=== PATIENT | male | born 1950 | race Caucasian/White ===

== ENCOUNTER → 2018-02-18 | Outpatient (CLI) | payer MEDICARE, BC ==
--- NOTE | 2018-02-18 12:10 | KCIC ---
Examination: MRI of the right shoulder without contrast HISTORY: History of right shoulder pain COMPARISON: None available TECHNIQUE: Multiplanar, multisequence MR imaging of the right shoulder were performed without contrast. FINDINGS: The long head of the biceps tendon is within the bicipital groove. The attachment of the long head of the biceps tendon to the superior labral anchor grossly appears intact. The attachment of the subscapularis tendon appears intact. Surgical changes of prior rotator cuff surgery identified. The visualized supraspinatus, infraspinatus tendon appear intact. There is mild increased signal identified in the supraspinatus tendon likely tendinosis. No evidence of obvious retracted full-thickness tear is identified. There is minimal amount of fluid is identified in the subacromial bursa. Small shoulder joint effusion is identified. There is mild increased signal identified in the labrum likely significant degeneration. Moderate degenerative changes acromioclavicular joint IMPRESSION: 1. Surgical repair changes of the rotator cuff with no evidence of full-thickness tear visualized however there is minimal amount of fluid identified in the subacromial bursa. If there is clinical suspicion for rotator cuff tear, consider MR arthrogram. 2. Mild increased signal identified in the rotator cuff probably mild tendinosis in the supraspinatus tendon. 3. Mild increased signal identified in the labrum likely mild degeneration. Electronically signed by: Maxime Tolbert MD (02/18/2018 12:05 PM) [facility]
== END | disposition home or self-care (01) ==
LOC: KCIC MRI 10:18
PROVIDERS: ATTEND Physician Assistant Medical
DX: M25.411 Effusion, right shoulder (principal)
CPT/HCPCS: 73221

== ENCOUNTER → 2019-11-23 | Outpatient (CLI) | payer MEDICARE, BC ==
--- NOTE | 2019-11-23 10:11 | KCIC ---
EXAMINATION: MRI LEFT KNEE WITHOUT IV CONTRAST CLINICAL HISTORY: Left knee pain for one yr, laterally. Some swelling per physician. TECHNIQUE: Multiplanar multisequential images obtained through the knee without intravenous contrast. COMPARISON: None FINDINGS: MENISCI: Medial Meniscus: Complex tear in the posterior horn and body Lateral Meniscus: Intact. LIGAMENTS: ACL: Intact PCL: Intact MCL: Intact LCL Complex: Intact CARTILAGE: Medial Femoral Condyle: Normal Medial Tibial Plateau: Normal Lateral Femoral Condyle: Normal Lateral Tibial Plateau: Normal Patella: Moderate sized area(s) of predominantly low grade (less than 50% thickness) cartilage loss and or fissuring with smaller area(s) of high grade (greater than 50% thickness) cartilage loss and or fissuring Trochlea: Normal TENDONS: The distal quadriceps and patellar tendons are intact. The popliteus tendon is intact. BONES AND MARROW: No evidence of acute fracture or suspicious marrow replacing process. MUSCLES: Muscle bulk and signal intensity within normal limits. JOINT FLUID AND SYNOVIUM: Small to moderate joint effusion. Mild synovitis. Small Abdul's cyst. IMPRESSION: Medial meniscus tear. Mild partial-thickness chondral wear in the patella. Electronically signed by: Grzegorz Ramos DO (11/23/2019 10:08 AM) [id number]
== END ==
LOC: KCIC MRI 08:01
PROVIDERS: ATTEND Physician Assistant Medical
DX: S83.207A Unspecified tear of unspecified meniscus, current injury, left knee, initial encounter (principal); M25.462 Effusion, left knee; M71.22 Synovial cyst of popliteal space [Baker], left knee; X58.XXXA Exposure to other specified factors, initial encounter; Y93.89 Activity, other specified; Y92.89 Other specified places as the place of occurrence of the external cause; Y99.8 Other external cause status
CPT/HCPCS: 73721

== ENCOUNTER → 2020-01-19 | Outpatient (CLI) | payer MEDICARE, BC ==
[~2020-01-19] MED LIST: HYDR-3165 PO; LATA2.5D2 OP; PROM25TA10 PO; TAMS0.4C97 PO; ZOLP10TA PO
== END ==
LOC: LAB 13:17
PROVIDERS: ATTEND Orthopaedic Surgery
DX: Z01.812 Encounter for preprocedural laboratory examination (principal); S83.232A Complex tear of medial meniscus, current injury, left knee, initial encounter; Z20.828 Contact with and (suspected) exposure to other viral communicable diseases
CPT/HCPCS: U0003

== ENCOUNTER 2020-01-22 08:59 | Day surgery (SDC) | payer MEDICARE, BC ==
[~2020-01-22] VITALS: Ht 172.7 cm; Wt 60.8 kg
[~2020-01-22 08:59] MED LIST changes: +BUPIVACAINE-EPI 0.25%-1:200000 MPF 30 ML VIAL. INJ ONE; +EPINEPHrine VIAL 30 MG/30 ML VIAL ONE; -HYDR-3165 PO; +HYDROmorphone 2 MG/ML VIAL IV PRN; +IV RINGERS,LACTATED 1000ML 1,000 ML IV SCH; -LATA2.5D2 OP; +MORPHINE SULFATE 2 MG/ML VIAL. IV PRN; +ONDANSETRON PF 4 MG/2 ML VIAL. IV PRN; +PROCHLORPERAZINE 10 MG/2 ML VIAL. IV PRN; -PROM25TA10 PO; -TAMS0.4C97 PO; -ZOLP10TA PO; +fentaNYL PF VIAL 100 MCG/2 ML VIAL IV PRN
[2020-01-22] MEDS ORDERED: fentaNYL PF VIAL 100 MCG/2 ML VIAL ONE ×2 (09:25→11:12)
[2020-01-22] MEDS ORDERED: LIDOCAINE 2% PF 5 ML VIAL. ONE (09:25)
[2020-01-22] MEDS ORDERED: PROPOFOL 10 MG/ML (20ML) VIAL. IV ONE (09:25)
[2020-01-22] MEDS ORDERED: ZOLP10TA PO (09:28)
[2020-01-22] MEDS ORDERED: TAMS0.4C97 PO (09:28)
[2020-01-22] MEDS ORDERED: LATA2.5D2 OP (09:28)
--- NOTE | 2020-01-22 09:42 | PDOC1 ---
History and Physical Date of Admission Date of Admission DATE: 01/22/20 TIME: 09:32 Identification/Chief Complaint Chief Complaint Left knee pain Source Source: Chart review History of Present Illness History of Present Illness 69-year-old new patient here with left knee pain greater than 1 year. He was a runner, and recalls on one run with his dog he had immediate pain in his left knee, and had to stop. He babied his knee for the next several weeks and the swelling that occurred improved but the pain continues to be there. The pain is on the lateral side of his left knee and is worse with increased activity and sometimes going down stairs. There are certain times where the knee will catch and feels as if he is going to have a buckle. He has tried anti-inflammatories but not real consistently. He is a very active [place]. History of arthroscopic surgeries in both knees when he was 32 years ago. He is referred to me from [place] [facility]. He denies any limp but notices pain with weakness and swelling that bothers him "everyday". He wears braces for both knees. Past Medical History Past Medical History Seasonal allergies, insomnia Past Surgical History Past Surgical History cervical spine 2008 ganlion cyst 2009 double inguinal hernia 2000 left knee arthroscopic 1980 right knee arthroscopic 1981 Right Shoulder Repair 2017 Family History Family History Mother: 81 yrs, unknown became sick in the night and at hospital next day Father: 98 yrs, old age 2 brother(s) , 3 sister(s) - healthy. Social History Smoke: No ALCOHOL: other (small amounts 4 days a week) Current Medications Current Medications Current Medications Ondansetron HCl (Zofran) 4 mg PRN Q6HRS PRN IV NAUSEA/VOMITING; Start 01/22/20 at 07:00; Stop 01/23/20 at 06:59 Fentanyl Citrate (Fentanyl 2ml Vial) 25 mcg PRN Q5MIN PRN IV MILD PAIN 1-3; Start 01/22/20 at 07:00; Stop 01/23/20 at 06:59 Fentanyl Citrate (Fentanyl 2ml Vial) 50 mcg PRN Q5MIN PRN IV MODERATE TO SEVERE PAIN; Start 01/22/20 at 07:00; Stop 01/23/20 at 06:59 Morphine Sulfate (Morphine Sulfate) 1 mg PRN Q10MIN PRN IV SEVERE PAIN 7-10; Start 01/22/20 at 07:00; Stop 01/23/20 at 06:59 Ringer's Solution 1,000 ml @ 30 mls/hr Q24H IV ; Start 01/22/20 at 07:00; Stop 01/22/20 at 18:59 Hydromorphone HCl (Dilaudid) 0.5 mg PRN Q10MIN PRN IV SEV PAIN, Second choice; Start 01/22/20 at 07:00; Stop 01/23/20 at 06:59 Prochlorperazine Edisylate (Compazine) 5 mg PACU PRN PRN IV NAUSEA, MRX1; Start 01/22/20 at 07:00; Stop 01/23/20 at 06:59 Cefazolin Sodium/ Dextrose 50 ml @ 100 mls/hr 1X PREOP PRN IV PRIOR TO PROCEDURE; Start 01/22/20 at 06:00; Stop 01/22/20 at 18:00 Bupivacaine HCl/ Epinephrine Bitart (Sensorcaine-Epi 0.25%-1:013116 Mpf) 30 ml 1X ONCE INJ ; Start 01/22/20 at 07:15; Stop 01/22/20 at 07:16; Status DC Bupivacaine HCl/ Epinephrine Bitart (Sensorcaine-Epi 0.25%-1:563196 Mpf) 30 ml 1X ONCE INJ ; Start 01/22/20 at 07:15; Stop 01/22/20 at 07:16; Status DC Epinephrine HCl (Adrenalin) 30 mg STK-MED ONCE .ROUTE ; Start 01/22/20 at 07:13; Stop 01/22/20 at 07:13; Status DC Propofol (Diprivan) 200 mg STK-MED ONCE IV ; Start 01/22/20 at 09:25; Stop 01/22/20 at 09:25; Status DC Fentanyl Citrate (Fentanyl 2ml Vial) 100 mcg STK-MED ONCE .ROUTE ; Start 01/22/20 at 09:25; Stop 01/22/20 at 09:26; Status DC Lidocaine HCl (Lidocaine Pf 2% Vial) 5 ml STK-MED ONCE .ROUTE ; Start 01/22/20 at 09:25; Stop 01/22/20 at 09:26; Status DC Active Scripts Active Reported Xalatan (Latanoprost) 2.5 Ml Drops 1 Drop OP HS Flomax (Tamsulosin Hcl) 0.4 Mg Cap.er.24h 0.4 Mg PO DAILY Ambien (Zolpidem Tartrate) 10 Mg Tablet 10 Mg PO PRN QHS PRN Allergies Allergies: Coded Allergies: No Known Drug Allergies (Unverified , 01/22/20) Physical Exam General: Alert, Cooperative HEENT: Atraumatic Lungs: Normal air movement Heart: RRR Abdomen: Soft Extremities: Other (The LEFT knee shows normal alignment, no masses and no detectable effusion. There is tenderness at the lateral and medial joint line (more-so lateral) and a mildly positive medial and lateral Oscar's test. Range of motion is 0-135 degrees. There is trace patellofemoral crepitus. McMur ray's test is positive. There is medial and lateral joint line pain with deep flexion and especially with rotation of the tibia. The knee is stable to varus and valgus stress without subluxation or laxity. The ACL feels intact on Tj testing. Muscle strength is normal (5/5) for quadriceps and hamstrings, and muscle tone is normal. The skin is normal with no scars, rashes, lesions or ulcers. Light touch sensation is intact. No edema and no varicosities. Dorsalis pedis pulse is intact and capillary refill is normal.) Skin: No rashes, No breakdown, No significant lesion Neuro: Normal speech, Normal tone, Sensation intact Vitals Vitals Vital Signs Date Time Temp Pulse Resp B/P (MAP) Pulse Ox O2 Delivery O2 Flow Rate FiO2 01/22/20 09:21 97.8 76 20 146/79 99 Room Air 97.8 Labs Labs [facility] [address] [place] [address] IMAGING REPORT Signed PATIENT: MINDI GALINDO ACCOUNT: [id number] : 1950 LOCATION: [facility] MRI AGE: 69 SEX: M EXAM STATUS: REG CLI ORD. PHYSICIAN: [facility] REASON: LEFT KNEE PAIN PROCEDURE: LOWER EXT JOINT WO LT EXAMINATION: MRI LEFT KNEE WITHOUT IV CONTRAST CLINICAL HISTORY: Left knee pain for one yr, laterally. Some swelling per physician. TECHNIQUE: Multiplanar multisequential images obtained through the knee without intravenous contrast. COMPARISON: None FINDINGS: MENISCI: Medial Meniscus: Complex tear in the posterior horn and body Lateral Meniscus: Intact. LIGAMENTS: ACL: Intact PCL: Intact MCL: Intact LCL Complex: Intact CARTILAGE: Medial Femoral Condyle: Normal Medial Tibial Plateau: Normal Lateral Femoral Condyle: Normal Lateral Tibial Plateau: Normal Patella: Moderate sized area(s) of predominantly low grade (less than 50% thickness) cartilage loss and or fissuring with smaller area(s) of high grade (greater than 50% thickness) cartilage loss and or fissuring Trochlea: Normal TENDONS: The distal quadriceps and patellar tendons are intact. The popliteus tendon is intact. BONES AND MARROW: No evidence of acute fracture or suspicious marrow replacing process. MUSCLES: Muscle bulk and signal intensity within normal limits. JOINT FLUID AND SYNOVIUM: Small to moderate joint effusion. Mild synovitis. Small Abdul's cyst. IMPRESSION: Medial meniscus tear. Mild partial-thickness chondral wear in the patella. Electronically signed by: Grzegorz Benites DO (11/23/2019 10:08 AM) [id number] DICTATED and SIGNED BY: GRZEGORZ BENITES DO DATE: 11/23/19 [address] [address] IMAGING REPORT Signed PATIENT: MINDI GALINDO ACCOUNT: [id number] : 1950 LOCATION: [facility] MRI AGE: 69 SEX: M EXAM STATUS: REG CLI ORD. PHYSICIAN: [facility] REASON: LEFT KNEE PAIN PROCEDURE: LOWER EXT JOINT WO LT EXAMINATION: MRI LEFT KNEE WITHOUT IV CONTRAST CLINICAL HISTORY: Left knee pain for one yr, laterally. Some swelling per physician. TECHNIQUE: Multiplanar multisequential images obtained through the knee without intravenous contrast. COMPARISON: None FINDINGS: MENISCI: Medial Meniscus: Complex tear in the posterior horn and body Lateral Meniscus: Intact. LIGAMENTS: ACL: Intact PCL: Intact MCL: Intact LCL Complex: Intact CARTILAGE: Medial Femoral Condyle: Normal Medial Tibial Plateau: Normal Lateral Femoral Condyle: Normal Lateral Tibial Plateau: Normal Patella: Moderate sized area(s) of predominantly low grade (less than 50% thickness) cartilage loss and or fissuring with smaller area(s) of high grade (greater than 50% thickness) cartilage loss and or fissuring Trochlea: Normal TENDONS: The distal quadriceps and patellar tendons are intact. The popliteus tendon is intact. BONES AND MARROW: No evidence of acute fracture or suspicious marrow replacing process. MUSCLES: Muscle bulk and signal intensity within normal limits. JOINT FLUID AND SYNOVIUM: Small to moderate joint effusion. Mild synovitis. Small Abdul's cyst. IMPRESSION: Medial meniscus tear. Mild partial-thickness chondral wear in the patella. Electronically signed by: Grzegorz Benites DO (11/23/2019 10:08 AM) [id number] DICTATED and SIGNED BY: GRZEGORZ BENITES DO DATE: 11/23/19 1008 VTE Prophylaxis Ordered VTE Prophylaxis Devices: Yes VTE Pharmacological Prophylaxi: Yes Assessment/Plan Assessment/Plan His MRI shows a medial meniscus tear although I also suspect a lateral tear. We reviewed his x-rays with MRI report together and discussed the natural history of the condition along with the risks, benefits, and alternatives to treatment. Given his continued pain and loss of function, my recommendation is arthroscopy with medial and likely lateral meniscectomy. We discussed potential risks of arthroscopic surgery, including risks of bleeding, infection, progressive arthritis, blood clots, or other potential surgical or anesthetic complications. We also discussed postoperative treatment and expectations including progression of arthritis following knee arthroscopy. He has minimal arthritis radiographically, and his symptoms would indicate that meniscal arthroscopic surgery will be quite helpful. All of his questions were answered and he desires to proceed. He is here today for elective left knee arthroscopy with meniscectomy. Justifications for Admission Other Justification LEONARDO MANE MD Jan 22, 2020 09:42
[2020-01-22] MEDS ORDERED: SEVOFLURANE 31 TO 60 MINUTES. IH ONE (10:13)
[2020-01-22] MEDS ORDERED: ONDANSETRON PF 4 MG/2 ML VIAL. ONE (10:13)
[2020-01-22] MEDS ORDERED: DEXAMETHASONE SOD PHOS 4 MG/ML VIAL ONE (10:13)
--- NOTE | 2020-01-22 10:45 | PDOC4 ---
Operative Note Operative Note Date of Procedure: January 22, 2020 Preoperative Diagnosis: left knee medial meniscus tear Postoperative Diagnosis: complex tear of medial meniscus, current injury, left knee, initial encounter S83.232A Procedures Performed: left knee arthroscopy, surgical, with meniscectomy, MEDIAL, including meniscal shaving, including debridement/shaving of articular cartilage (chondroplasty) CPT 26026 Surgeon: Leonardo Willard MD Customer Service Specialist: DEZ Uribe Anesthesia: General Estimated Blood Loss: 5 mL Specimens: none Drains: none Complications: none Tourniquet time: 23 minutes at 300 mm Hg Indications for Procedure: The patient is a 69-year-old with left knee pain, unrelieved with nonoperative treatment. Exam and MRI are consistent with a meniscus tear. We talked about the risks and benefits of proceeding with an arth roscopic procedure. We talked about potential risks of ongoing pain, progressive arthritis, bleeding, infection, blood clots, or other potential surgical or anesthetic complications. All of the patient's questions about surgery were answered and he desired to proceed. Written consent was obtained. Description of Operation: The patient was identified in the preoperative holding area. The correct left knee was marked by me. The patient was taken to the operating room, where a general anesthetic was used. Preoperative antibiotics were given intravenously. A time-out procedure was performed. A tourniquet was placed on the upper thigh. Local anesthetic 20 mL of 0.25% bupivacaine was injected using sterile technique into the knee joint. The limb was prepared circumferentially with ChloraPrep solution and sterile waterproof arthroscopy drapes were applied. The limb was exsanguinated with an Esmarch bandage and the tourniquet was inflated. Lateral and medial arthroscopy portals were established. The medial meniscus showed a complex unrepairable tear with unstable flaps. A meniscectomy was performed with basket forceps and the motorized shaver back to a smooth stable base, and the resection tapered into the middle one-third of the meniscus. 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 The lateral tibiofemoral joint showed a normal lateral meniscus, so no lateral meniscectomy was required.The lateral articular surfaces showed chondromalacia Outerbridge grade I, so no chondroplasty was required. The patellofemoral joint showed chondromalacia Outerbridge grade I, so no chondroplasty was required. There is a large area of eburnated bone along the anterior medial femoral condyle, where it articulates with the patella. There is a small area of eburnated bone at the medial patella. The suprapatellar pouch, medial and lateral gutters were free of loose bodies. Copious irrigation was used to drain all meniscal and chondral fragments, and the knee was drained of fluid. The portals were closed with #3-0 Prolene interrupted sutures. Additional local anesthetic, 30 mL of 0.25% bupivacaine with epinephrine was injected. A bulky sterile dressing was applied and the tourniquet was released. Needle and sponge counts were correct and there were no apparent complications. LEONARDO WILLARD MD Jan 22, 2020 10:45
[2020-01-22] MEDS: fentaNYL PF VIAL 100 MCG/2 ML VIAL IV PRN ×2 (11:13→11:22)
[2020-01-22] MEDS ORDERED: HYDR-3165 PO (11:41)
[2020-01-22] MEDS ORDERED: PROM25TA10 PO (11:41)
[2020-01-22] MEDS ORDERED: HYDROcodone/APAP 7.5/325MG 1 TAB TABLET PO PRN ×2 (11:45→12:00)
[2020-01-22 11:48] VITALS: BP 134/99
== END 2020-01-22 12:20 | disposition home or self-care (01) ==
LOC: SURG 08:59
PROVIDERS: ATTEND Orthopaedic Surgery
DX: S83.232A Complex tear of medial meniscus, current injury, left knee, initial encounter (principal); M19.90 Unspecified osteoarthritis, unspecified site; E78.00 Pure hypercholesterolemia, unspecified; M81.0 Age-related osteoporosis without current pathological fracture; F41.9 Anxiety disorder, unspecified; N40.0 Benign prostatic hyperplasia without lower urinary tract symptoms; Z72.89 Other problems related to lifestyle; Z79.899 Other long term (current) drug therapy; Z98.890 Other specified postprocedural states; X58.XXXA Exposure to other specified factors, initial encounter; Y93.89 Activity, other specified; Y92.89 Other specified places as the place of occurrence of the external cause; Y99.8 Other external cause status
CPT/HCPCS: 29881; J0171; J0690; J1100; J2405; J2704; J3010; J3490